=== PATIENT | male | born 1980 | race Caucasian/White ===

== ENCOUNTER 2021-02-12 09:34 | Emergency (ER) | payer BC, OTHER ==
[2021-02-12] MEDS ORDERED: ACETAMINOPHEN TAB 500 MG TAB PO STA (09:56)
[2021-02-12] MEDS ORDERED: ONDANSETRON 4 MG/2 ML VIAL IVP STA (09:56)
[2021-02-12] MEDS ORDERED: SODIUM CHLORIDE 0.9% 1,000 ML IV STA (09:56)
--- NOTE | 2021-02-12 10:23 | ED ---
General Adult HPI - General Chief complaint: Nausea/Vomiting/Diarrhea Stated complaint: Vomiting/Diarrhea Time Seen by Provider: 02/12/21 09:55 Source: patient Mode of arrival: ambulatory Limitations: no limitations - History of Present Illness Initial comments: Dictation was produced using [employer] dictation software. please excuse any grammatical, word or spelling errors. Chief Complaint: 40-year-old male withpast nuchal history presents with nausea, vomiting and diarrhea for the last 3 days. History of Present Illness: Yue is a 40-year-old male who presents to the emergency department for nausea vomiting and diarrhea for the last 3 days. He states his girlfriend had similar symptoms. States that his emesis and diarrhea is not bilious nonbloody. States it's watery. Patient has any abdominal pain. Denies any recent travel. Denies any camping. Patient denies any respiratory symptoms. No runny nose, cough, sore throat. The ROS documented in this emergency department record has been reviewed and confirmed by me. Those systems with pertinent positive or negative responses have been documented in the HPI. All other systems are other negative and/or noncontributory. PHYSICAL EXAM: General Impression: Alert and oriented x3, not in acute distress HEENT: Normocephalic atraumatic, extra-ocular movements intact, pupils equal and reactive to light bilaterally, dry mucous membranes Cardiovascular: Heart regular rate and rhythm Chest: Able to complete full sentences, no retractions, no tachypnea Abdomen: abdomen soft, non-tender, non-distended, no organomegaly Musculoskeletal: Pulses present and equal in all extremities, no peripheral edema Motor: no focal deficits noted Neurological: CN II-XII grossly intact, no focal motor or sensory deficits noted Skin: Intact with no visualized rashes Psych: Normal affect and mood ED course: 40-year-old male with clinical presentation consistent with gastroenteritis. Vital signs upon arrival shows temperature 100.9, heart rate of 132, rest of vital signs within acceptable limits. I return evaluation obtained. CBC [place]. Metabolic panel is negative. For panel virus PCR is negative for flu, RSV and coronavirus patient reevaluated bedside found to be stable medical condition. At this point no clear indication for antibiotic administration. He does have strange findings on his EKG however no dynamic changes. He is notified of these EKG changes advised follow up with his primary care doctor. EKG interpretation: Ventricular rate 106, sinus tachycardia, OH interval 124, QRS 12, QTC 419. No OH prolongation, no QTC prolongation, diffuse T-wave inversions. No old EKG for comparison. Overall this EKG is nonspecific. - Related Data Home Medications Medication Instructions Recorded Confirmed Levothyroxine Sodium [Synthroid] 175 mcg PO DAILY 02/12/21 02/12/21 Multivitamins, Thera [Multivitamin 1 tab PO DAILY 02/12/21 02/12/21 (formulary)] Allergies Allergy/AdvReac Type Severity Reaction Status Date / Time No Known Allergies Allergy Verified 02/12/21 11:43 Review of Systems ROS Statement: Those systems with pertinent positive or pertinent negative responses have been documented in the HPI. ROS Other: All systems not noted in ROS Statement are negative. Past Medical History Past Medical History: Thyroid Disorder History of Any Multi-Drug Resistant Organisms: None Reported Past Surgical History: Appendectomy, Hernia Repair Past Psychological History: No Psychological Hx Reported Smoking Status: Never smoker Past Alcohol Use History: None Reported Past Drug Use History: None Reported General Exam Limitations: no limitations Course Vital Signs 02/12/21 02/12/21 09:43 11:29 Temperature 100.9 F H 99.7 F H Pulse Rate 133 H 98 Respiratory 18 16 Rate Blood Pressure 134/79 143/71 O2 Sat by Pulse 97 95 Oximetry Medical Decision Making - Lab Data Result diagrams: 02/12/21 10:08 02/12/21 10:08 Lab Results 02/12/21 02/12/21 02/12/21 Range/Units 10:08 10:08 10:08 WBC 13.4 H (3.8-10.6) k/uL RBC 5.73 (4.30-5.90) m/uL Hgb 17.6 H (13.0-17.5) gm/dL Hct 49.6 (39.0-53.0) % MCV 86.6 (80.0-100.0) fL MCH 30.8 (25.0-35.0) pg MCHC 35.6 (31.0-37.0) g/dL RDW 12.3 (11.5-15.5) % Plt Count 157 (150-450) k/uL MPV 7.2 Neutrophils % 89 % Lymphocytes % 4 % Monocytes % 5 % Eosinophils % 1 % Basophils % 1 % Neutrophils # 11.9 H (1.3-7.7) k/uL Lymphocytes # 0.6 L (1.0-4.8) k/uL Monocytes # 0.7 (0-1.0) k/uL Eosinophils # 0.1 (0-0.7) k/uL Basophils # 0.1 (0-0.2) k/uL Sodium 138 (137-145) mmol/L Potassium 4.3 (3.5-5.1) mmol/L Chloride 107 (98-107) mmol/L Carbon Dioxide 21 L (22-30) mmol/L Anion Gap 10 mmol/L BUN 16 (9-20) mg/dL Creatinine 1.07 (0.66-1.25) mg/dL Est GFR (CKD-EPI)AfAm >90 (>60 ml/min/1.73 sqM) Est GFR (CKD-EPI)NonAf 87 (>60 ml/min/1.73 sqM) Glucose 153 H (74-99) mg/dL Calcium 9.1 (8.4-10.2) mg/dL Total Bilirubin 0.6 (0.2-1.3) mg/dL AST 24 (17-59) U/L ALT 18 (4-49) U/L Alkaline Phosphatase 75 (38-126) U/L Total Protein 7.1 (6.3-8.2) g/dL Albumin 4.2 (3.5-5.0) g/dL Lipase 63 (23-300) U/L Influenza Type A (PCR) Not Detected (Not Detectd) Influenza Type B (PCR) Not Detected (Not Detectd) RSV (PCR) Not Detected (Not Detectd) SARS-CoV-2 (PCR) Not Detected (Not Detectd) Disposition Clinical Impression: Gastroenteritis Disposition: HOME SELF-CARE Condition: Good Instructions (If sedation given, give patient instructions): Acute Nausea and Vomiting (ED), Acute Diarrhea (ED) Is patient prescribed a controlled substance at d/c from ED?: No Referrals: Marcelino Renee DO [Primary Care Provider] - 1-2 days Time of Disposition: 12:15
[2021-02-12 10:27] LABS: Basophils # (A) 0.1 k/uL (0-0.2); Basophils % (A) 1 %; Eosinophils # (A) 0.1 k/uL (0-0.7); Eosinophils % (A) 1 %; HCT 49.6 % (39.0-53.0); HGB 17.6 gm/dL (13.0-17.5); Lymphocytes # (A) 0.6 k/uL (1.0-4.8); Lymphocytes % (A) 4 %; MCH 30.8 pg (25.0-35.0); MCHC 35.6 g/dL (31.0-37.0); MCV 86.6 fL (80.0-100.0); Mean Platelet Volume 7.2; Monocytes # (A) 0.7 k/uL (0-1.0); Monocytes % (A) 5 %; Neutrophils # (A) 11.9 k/uL (1.3-7.7); Neutrophils % (A) 89 %; Platelet Count 157 k/uL (150-450); RBC 5.73 m/uL (4.30-5.90); RDW 12.3 % (11.5-15.5); WBC 13.4 k/uL (3.8-10.6)
[2021-02-12 10:41] LABS: ALT 18 U/L (4-49); AST 24 U/L (17-59); African American GFR (CKD) >90 (>60 ml/min/1.73 sqM); Albumin 4.2 g/dL (3.5-5.0); Alkaline Phosphatase 75 U/L (38-126); Anion Gap 10 mmol/L; Blood Urea Nitrogen 16 mg/dL (9-20); Calcium 9.1 mg/dL (8.4-10.2); Carbon Dioxide 21 mmol/L (22-30); Chloride 107 mmol/L (98-107); Glucose 153 mg/dL (74-99); Lipase 63 U/L (23-300); Non-African American GFR(CKD) 87 (>60 ml/min/1.73 sqM); Potassium 4.3 mmol/L (3.5-5.1); Sodium 138 mmol/L (137-145); Total Bilirubin 0.6 mg/dL (0.2-1.3); Total Protein 7.1 g/dL (6.3-8.2)
[2021-02-12 11:31] VITALS: BP 143/71; PULSE 98; RESP 16; TEMP 99.7
[2021-02-12] MEDS ORDERED: ONDANSETRON 4 MG ODT STARTER PACK 2 TAB BTL PO STA (12:15)
== END 2021-02-12 12:22 | disposition home or self-care (01) ==
LOC: EC 09:34
DX: K52.9 Noninfective gastroenteritis and colitis, unspecified (principal); Z20.822 Contact with and (suspected) exposure to COVID-19
CPT/HCPCS: 36415; 93005; 80053; 83690; 85025; 87636; 99284; 96374; 96361 ×2; J2405

== ENCOUNTER 2021-07-12 12:37 | Emergency (ER) | payer BC, OTHER ==
--- NOTE | 2021-07-12 14:49 | ED ---
General Adult HPI - General Source: patient, RN notes reviewed Mode of arrival: ambulatory Limitations: no limitations <Maycol Norman - Last Filed: 07/12/21 14:46> <Amari Irwin - Last Filed: 07/12/21 18:56> - General Stated complaint: Covid+/Wants antibodies Time Seen by Provider: 07/12/21 14:46 - History of Present Illness Initial comments: 40-year-old male presents emergency Department chief complaint of cough congestion. Patient states he tested positive for COVID-19. Patient symptoms started on Friday tested positive yesterday. Patient states that he has fevers chills body aches. He did receive the first vaccine and return on. Patient does complaint of mild chest discomfort, pain with cough. No GI symptoms including nausea vomiting diarrhea constipation. (Maycol Norman) - Related Data Previous Rx's Medication Instructions Recorded Azithromycin [Zithromax Z-pack] 0 mg PO DIRECTED #6 tab 07/12/21 Allergies Allergy/AdvReac Type Severity Reaction Status Date / Time No Known Allergies Allergy Verified 07/12/21 17:45 Review of Systems ROS Other: All systems not noted in ROS Statement are negative. <Maycol Norman - Last Filed: 07/12/21 14:46> ROS Other: All systems not noted in ROS Statement are negative. <Amari Irwin - Last Filed: 07/12/21 18:56> ROS Statement: Those systems with pertinent positive or pertinent negative responses have been documented in the HPI. Past Medical History Past Medical History: Thyroid Disorder History of Any Multi-Drug Resistant Organisms: None Reported Past Surgical History: Appendectomy, Hernia Repair Past Psychological History: No Psychological Hx Reported Smoking Status: Never smoker Past Alcohol Use History: None Reported Past Drug Use History: None Reported <Maycol Norman - Last Filed: 07/12/21 14:46> Course Vital Signs 07/12/21 07/12/21 07/12/21 14:45 17:38 18:08 Temperature 101.4 F H Pulse Rate 108 H 84 79 Respiratory 18 18 18 Rate Blood Pressure 145/75 145/87 102/63 O2 Sat by Pulse 97 96 96 Oximetry Medical Decision Making <Amari Irwin - Last Filed: 07/12/21 18:56> - Medical Decision Making Dictation was produced using [employer] dictation software. please excuse any grammatical, word or spelling errors. Chief Complaint: 40-year-old male with no significant past medical history presents emergency department for monoclonal antibodies History of Present Illness: Patient is a 40-year-old male he has no significant past medical history. He presents to the emergency department for monoclonal antibodies. Patient tested positive for rotavirus 2 days ago. His been symptomatically for the last 4 days. Tested positive on it at home test. Patient asymptomatic contracted a virus from second individual at the gymnasium. Patient has been having cough, congestion. His cough is dry. He has been having fevers. He does have migraine exacerbation. He states his headache is not severe thunderclap. The ROS documented in this emergency department record has been reviewed and confirmed by me. Those systems with pertinent positive or negative responses have been documented in the HPI. All other systems are other negative and/or noncontributory. PHYSICAL EXAM: General Impression: Alert and oriented x3, not in acute distress HEENT: Normocephalic atraumatic, extra-ocular movements intact, pupils equal and reactive to light bilaterally, mucous membranes moist. Cardiovascular: Heart regular rate and rhythm Chest: Able to complete full sentences, no retractions, no tachypnea Musculoskeletal: Pulses present and equal in all extremities, no peripheral edema Motor: no focal deficits noted Neurological: CN II-XII grossly intact, no focal motor or sensory deficits noted Skin: Intact with no visualized rashes Psych: Normal affect and mood ED course: 40-year-old male presents to the emergency department for monoclonal antibodies. Temperature upon arrival is 101.4. He is given 1 g of Tylenol. Rest of vitals are unremarkable. His non-hypoxic. Non-dyspneic at bedside. Patient given monoclonal antibody infusion. Chest x-ray shows focal infiltrate to the left midlung. Concern of superimposed bacterial pneumonia. Patient given prescription for antibiotics. Patient observed in emergency department after infusion reevaluated at bedside finally stable medical condition. (Amari Irwin) Disposition <Maycol Norman - Last Filed: 07/12/21 14:46> Is patient prescribed a controlled substance at d/c from ED?: No <Amari Irwin - Last Filed: 07/12/21 18:56> Clinical Impression: Coronavirus infection Disposition: HOME SELF-CARE Condition: Fair Instructions (If sedation given, give patient instructions): Coronavirus Disease 2019 (COVID-19) Prescriptions: Azithromycin [Zithromax Z-pack] 0 mg PO DIRECTED #6 tab Referrals: Marcelino Renee DO [Primary Care Provider] - 1-2 days
[2021-07-12 14:50] VITALS: RESP 18; TEMP 101.4
[2021-07-12] MEDS ORDERED: BAMLANIVIMAB (EUA) 700 MG, ETESEVIMAB (EUA) 1,400 MG in SODIUM CHLORIDE 0.9% 50 ML IVPB ONE (15:45)
[2021-07-12] MEDS ORDERED: SODIUM CHLORIDE 0.9% 50 ML IVPB ONE (15:45)
--- NOTE | 2021-07-12 18:48 | XR ---
EXAMINATION TYPE: XR chest 1V portable DATE OF EXAM: 07/12/2021 CLINICAL HISTORY: covid. TECHNIQUE: Portable frontal view of the chest. COMPARISON: None FINDINGS: The cardiomediastinal silhouette is within normal limits for size. Pulmonary vasculature i s normal. There is a focal airspace opacity over the left midlung. No pleural effusion. No pneumotho rax seen. No acute displaced osseous fracture. IMPRESSION: Focal pneumonia over the left midlung.
[2021-07-12] MEDS ORDERED: AZITHROMYCIN 500 MG TAB PO STA (18:58)
[2021-07-12 19:21] VITALS: BP 122/77; PULSE 80
== END 2021-07-12 19:32 | disposition home or self-care (01) ==
LOC: EC 12:37
DX: U07.1 COVID-19 (principal); E07.9 Disorder of thyroid, unspecified; Z90.89 Acquired absence of other organs
CPT/HCPCS: 99283; 96365; 71045; J3490